=== PATIENT | female | born 1980 | race Caucasian/White ===

== ENCOUNTER 2016-11-29 16:05 | Emergency (ER) | payer OTHER ==
[2016-11-29 16:10] VITALS: BP 142/98; PULSE 110; TEMP 97.6; BMI 25.7
--- NOTE | 2016-11-29 16:42 | PDOC ---
[id number] No Limitations - History of Present Illness Initial Comments: 11/29/16 16:55 Chief complaint: Vomiting and diarrhea Patient is a healthy 35-year-old female states that she has 1 day of vomiting and diarrhea, son at the same yesterday. No fever. GENERAL/CONSTITUTIONAL: No fever, weakness. dizziness HEAD, EYES, EARS, NOSE AND THROAT: No change in vision. No ear pain or discharge. No sore throat. CARDIOVASCULAR: No chest pain RESPIRATORY: No shortness of breath or cough GASTROINTESTINAL: +pain, nausea, vomiting, diarrhea GENITOURINARY: No dysuria MUSCULOSKELETAL: No neck or back pain SKIN: No rash NEUROLOGIC: No headache, vertigo, loss of consciousness, or loss of sensation. GENERAL: The patient is awake, alert, and fully oriented, in no acute distress. HEAD: Normal with no signs of trauma. EYES: Pupils equal, round and reactive to light, sclera anicteric, conjunctiva clear. ENT: pharynx: no erythema, no exudate, uvula midline NECK: supple CHEST: clear, nontender, rr ABD: soft, +bs, minimal suprapubic tenderness, no right lower tenderness EXTREMITIES: Normal range of motion, no edema. NEUROLOGICAL: Normal speech, normal gait. SKIN: Warm, Dry <Kyra Geller - Last Filed: 11/29/16 20:25> <Thang Louise - Last Filed: 12/04/16 09:56> - General Chief Complaint: Nausea/Vomiting Stated Complaint: VOMITING/ABD PAIN Time Seen by Provider: 11/29/16 16:25 Past History - Past Medical History Anemia: No Asthma: No Cancer: No Cardiac Disorders: No CVA: No COPD: No CHF: No Dementia: No Diabetes: No GI Disorders: No Disorders: No HTN: No Hypercholesterolemia: No Kidney Stones: Yes Liver Disease: No Seizures: No Thyroid Disease: No - Surgical History Abdominal Surgery: Yes (aura barrett) Appendectomy: No Cardiac Surgery: No Cholecystectomy: No Lung Surgery: No Neurologic Surgery: No Orthopedic Surgery: No - Immunization History Immunization Up to Date: Yes - Psycho/Social/Smoking Cessation Hx Anxiety: No Suicidal Ideation: No Smoking Status: No Smoking History: Never smoked Have you smoked in the past 12 months: No Number of Cigarettes Smoked Daily: 0 Information on smoking cessation initiated: No Hx Alcohol Use: No Drug/Substance Use Hx: No Substance Use Type: Alcohol Hx Substance Use Treatment: No <Kyra Geller - Last Filed: 11/29/16 20:25> <Thang Louise - Last Filed: 12/04/16 09:56> - Past Medical History Allergies/Adverse Reactions: Allergies Allergy/AdvReac Type Severity Reaction Status Date / Time morphine Allergy Severe Nausea Verified 11/29/16 16:08 Home Medications: Ambulatory Orders NK [No Known Home Medication] 11/29/16 *Physical Exam - Vital Signs Last Vital Signs Temp Pulse Resp BP Pulse Ox 97.6 F 110 H 20 142/98 96 11/29/16 16:08 11/29/16 16:08 11/29/16 16:08 11/29/16 16:08 11/29/16 16:08 <Kyra Geller - Last Filed: 11/29/16 20:25> - Vital Signs Last Vital Signs Temp Pulse Resp BP Pulse Ox 97.6 F 110 H 20 142/98 96 11/29/16 16:08 11/29/16 16:08 11/29/16 16:08 11/29/16 16:08 11/29/16 16:08 <Thang Louise - Last Filed: 12/04/16 09:56> ED Treatment Course - LABORATORY CBC & Chemistry Diagram: 11/29/16 17:00 11/29/16 17:00 <Kyra Geller - Last Filed: 11/29/16 20:25> - LABORATORY CBC & Chemistry Diagram: 11/29/16 17:00 11/29/16 17:00 - ADDITIONAL ORDERS Additional order review: 11/29/16 17:00 RBC 5.20 MCV 81.4 MCHC 33.1 RDW 13.1 MPV 8.0 Neutrophils % 81.0 Lymphocytes % 13.0 D Monocytes % 4.9 D Eosinophils % 0.2 D Basophils % 0.9 - Medications Given in the ED: ED Medications Discontinued Medications Generic Name Dose Route Start Last Admin Trade Name Freq PRN Reason Stop Dose Admin Famotidine/Sodium Chloride 50 mls @ 100 mls/hr 11/29/16 16:49 11/29/16 17:11 Pepcid 20 Mg Premixed Ivpb - IVPB 11/29/16 17:18 100 mls/hr ONCE ONE Administration Sodium Chloride 1,000 mls @ 1,000 mls/hr 11/29/16 16:49 11/29/16 17:06 Normal Saline - IV 11/29/16 17:48 1,000 mls/hr ASDIR STA Administration Ondansetron HCl 4 mg 11/29/16 16:49 11/29/16 17:11 Zofran Injection IVPB 11/29/16 16:50 4 mg ONCE ONE Administration Ondansetron HCl 4 mg 11/29/16 19:19 11/29/16 19:37 Zofran Injection IVPUSH 11/29/16 19:20 4 mg ONCE ONE Administration <Thang Louise - Last Filed: 12/04/16 09:56> Medical Decision Making - Medical Decision Making 11/29/16 16:58 1 day of vomiting diarrhea, no fever, daughter has the same. Patient appears otherwise well. Patient will get labs, hydration, Zofran and Pepcid and be reassessed. Abdominal exam is non-concerning, no imaging indicated 11/29/16 19:22 Patient feels better, complaining of a little nausea, abdominal exam benign, will give 1 more dose of Zofran prior to discharge <Kyra Geller - Last Filed: 11/29/16 20:25> - Medical Decision Making 12/04/16 09:56 The patient was seen and evaluated in conjunction with NIKKO Geller under my direct supervision, ancillary studies were reviewed. I agree with the plan as outlined by NIKKO Geller . <Thang Louise - Last Filed: 12/04/16 09:56> *DC/Admit/Observation/Transfer - Discharge Dispostion Admit: No <Kyra Geller - Last Filed: 11/29/16 20:25> <Thang Louise - Last Filed: 12/04/16 09:56> Diagnosis at time of Disposition: Vomiting and diarrhea - Discharge Dispostion Disposition: HOME - Referrals Referrals: Cinthia Carias [Primary Care Provider] - - Patient Instructions Printed Discharge Instructions: DI for Vomiting -- Adult Additional Instructions: Clear fluids. No vomiting can eat bland foods, no spicy or greasy foods Return to the nearest ER if fever, vomiting or worsening pain Followup with your doctor in one to 2 days
[2016-11-29] MEDS ORDERED: ONDANSETRON 4 MG/2 ML VIAL IVPB ONE (16:49)
[2016-11-29] MEDS ORDERED: FAMOTIDINE 20 MG/50 ML IVPB 50 ML IVPB ONE ×2 (16:49→17:07)
[2016-11-29] MEDS ORDERED: SODIUM CHLORIDE 1,000 ML IV STA (16:49)
[2016-11-29] MEDS ORDERED: ONDANSETRON 4 MG/2 ML VIAL ONE ×2 (17:07→19:24)
[2016-11-29 17:16] LABS: BASOPHIL 0.9 % (0-2.0); EOSINOPHIL 0.2 % (0-4.5); MCHC 33.1 g/dl (32.0-36.0); MEAN CELL VOLUME 81.4 fl (80-96); PLATELET COUNT 421 K/MM3 (134-434); RDW 13.1 % (11.6-15.6); WHITE BLOOD COUNT 11.5 K/mm3 (4.0-10.0)
[2016-11-29 17:17] LABS: URINE APPEARANCE SLCLOUDY; URINE BILIRUBIN NEGATIVE (NEGATIVE); URINE BLOOD NEGATIVE (NEGATIVE); URINE COLOR YELLOW; URINE GLUCOSE (UA) NEGATIVE (NEGATIVE); URINE KETONE NEGATIVE (NEGATIVE); URINE LEUK ESTERASE NEGATIVE (NEGATIVE); URINE NITRITE NEGATIVE (NEGATIVE); URINE UROBILINOGEN NEGATIVE E.U./dl (0.2-1.0)
[2016-11-29 17:18] LABS: URINE PROTEIN 2+ (NEGATIVE)
[2016-11-29 17:39] LABS: URINE MUCUS FEW; URINE RBC 5 /hpf (0-3)
[2016-11-29 18:10] LABS: ALBUMIN 4.3 g/dl (3.4-5.0); ANION GAP 13 (8-16); BILIRUBIN,TOTAL 1.2 mg/dL (0.2-1.0); CALCIUM 9.2 mg/dL (8.5-10.1); CO2 25 mmol/L (21-32); CREATININE 0.8 mg/dL (0.55-1.02); GLUCOSE,RANDOM 100 mg/dL (74-106); SGOT/AST 16 U/L (15-37); SGPT/ALT 30 U/L (12-78)
[2016-11-29 18:12] LABS: ALK PHOS 116 U/L (45-117); TOT PROT 8.4 g/dl (6.4-8.2)
[2016-11-29] MEDS ORDERED: ONDANSETRON 4 MG/2 ML VIAL IVPUSH ONE (19:19)
== END 2016-11-29 19:27 | disposition home or self-care (01) ==
LOC: JER 16:05
PROC: 3E033GC Introduction of Other Therapeutic Substance into Peripheral Vein, Percutaneous Approach (ICD-10-PCS; principal; 2016-11-29)
PROC: 3E0337Z Introduction of Electrolytic and Water Balance Substance into Peripheral Vein, Percutaneous Approach (ICD-10-PCS; 2016-11-29)
DX: R11.10 Vomiting, unspecified (principal); R19.7 Diarrhea, unspecified; Z87.442 Personal history of urinary calculi
CPT/HCPCS: 36415; 80053; 81003; 81015; 84703; 85025; 99284-25

== ENCOUNTER 2019-06-27 12:40 | Inpatient (IN) | payer OTHER ==
[2019-06-27] MEDS ORDERED: SODIUM CHLORIDE 2,313 ML IV ONE (13:18)
--- NOTE | 2019-06-27 13:21 | PDOC ---
Attending Attestation - Resident Resident Name: IgnacioAntonio - ED Attending Attestation I have performed the following: I have examined & evaluated the patient, The case was reviewed & discussed with the resident, I agree w/resident's findings & plan, Exceptions are as noted - HPI HPI: 06/27/19 13:32 38y F hx of pyelo, kidney stones presents with LLQ and L flank pain since yeserday morning, endorses vomting n dubjective fever. currently on her period, she originally though hte sympoms were fromhe peiod. denes any dysuria, foul smelling urine, diarrhea.On arrival p noted to be tachy and febrile exam: general: no acute distress card tachycadic abd: soft, mild LLQ ttp, +LCVA tenderness ddx - likely pyelo vs kidney stone vs obstructed stone fluids for huydratio tyelnol for fver will obtain blood work, ua, hcg, spiral ct - Physicial Exam PE: 06/29/19 07:37 see above - Medical Decision Making pts ct resulted with n osigns of stone but suspicous of pyelo pt has leukocytosis and elevated LA - pt was hydrated signed out to evening team to reasess, recheck LA and dispo accordingly Heart Score/ECG Review - ECG Impressions Comment:: 06/27/19 14:44 Twelve-lead EKG was performed and reviewed by me. There is normal sinus rhythm with a rate of 108 Normal axis nomal r wve progression no st changes suggestive of acute ischemia impression: sinus tachycardia
[2019-06-27] MEDS ORDERED: ONDANSETRON 4 MG/2 ML VIAL IVPUSH ONE ×2 (13:25→16:28)
[2019-06-27] MEDS ORDERED: KETOROLAC TROMETHAMINE 30 MG/1 ML VIAL IVPUSH ONE (13:25)
[2019-06-27] MEDS ORDERED: ONDANSETRON 4 MG/2 ML VIAL ONE ×3 (13:36→18:17)
[2019-06-27] MEDS ORDERED: KETOROLAC TROMETHAMINE 30 MG/1 ML VIAL ONE (13:36)
[2019-06-27 13:40] LABS: BASO % 0.5 % (0-2.0); EOS % 0.1 % (0-4.5); HEMATOCRIT 36.1 % (32.4-45.2); HEMOGLOBIN 12.1 GM/dL (10.7-15.3); MCH 27.2 pg (25.7-33.7); MCHC 33.4 g/dl (32.0-36.0); MEAN CELL VOLUME 81.2 fl (80-96); MEAN PLT VOLUME 7.7 fl (7.5-11.1); MONO % 5.9 % (3.8-10.2); NEUT % 89.5 % (42.8-82.8); PLATELET COUNT 297 K/MM3 (134-434); RBC 4.45 M/mm3 (3.60-5.2); RDW 13.6 % (11.6-15.6); WHITE BLOOD COUNT 15.4 K/mm3 (4.0-10.0)
--- NOTE | 2019-06-27 13:52 | PDOC ---
History of Present Illness - General Chief Complaint: Back Pain Stated Complaint: R/O KIDNEY STONES Time Seen by Provider: 06/27/19 13:09 History Source: Patient, Family - History of Present Illness Initial Comments: 06/27/19 15:05 Ms. Thompson is a 38 y/o woman with hx prior nephrolithiasis, pyelonephritis p/w one day of worsening L flank and lower abdominal pain. She reports that last night she began to experience mild L sided cramping that she attributed to her menstrual period as she had begun her period yesterday as well. Over night, the pain began to worsen significantly, as she reports the beginning of chills, nausea overnight. Today she reports 10/10 L sided Flank and abdominal pain, radiation across her lower back, worse with movement, cramping pain, and constant. She reports 6x episodes of non bloody non bilious vomiting since this AM, alongside ongoing severe pain and chills. She reports that the pain feels similar to her prior episode of pyelonephritis. She denies any fatigue, chest pain, dysuria, polyuria, changes in vision, lightheadedness, vertigo. Past History - Past Medical History Allergies/Adverse Reactions: Allergies Allergy/AdvReac Type Severity Reaction Status Date / Time morphine Allergy Severe Nausea Verified 11/29/16 16:08 Home Medications: Ambulatory Orders NK [No Known Home Medication] 11/29/16 Anemia: No Asthma: No Cancer: No Cardiac Disorders: No CVA: No COPD: No CHF: No Dementia: No Diabetes: No GI Disorders: No Disorders: No HTN: No Hypercholesterolemia: No Kidney Stones: Yes Liver Disease: No Seizures: No Thyroid Disease: No - Surgical History Abdominal Surgery: Yes (tummy tuck) Appendectomy: No Cardiac Surgery: No Cholecystectomy: No Lung Surgery: No Neurologic Surgery: No Orthopedic Surgery: No - Immunization History Immunization Up to Date: Yes - Suicide/Smoking/Psychosocial Hx Smoking Status: No Smoking History: Never smoked Have you smoked in the past 12 months: No Number of Cigarettes Smoked Daily: 0 Information on smoking cessation initiated: No Hx Alcohol Use: No Drug/Substance Use Hx: No Substance Use Type: Alcohol Hx Substance Use Treatment: No Review of Systems - Review of Systems Able to Perform ROS?: Yes Comments:: 06/27/19 14:15 ROS: GENERAL/CONSTITUTIONAL: Fever, chills. No weakness. HEAD, EYES, EARS, NOSE AND THROAT: No change in vision. No ear pain or discharge. No sore throat. CARDIOVASCULAR: No chest pain or shortness of breath RESPIRATORY: No cough, wheezing, or hemoptysis. GASTROINTESTINAL: Nausea, vomiting. No diarrhea or constipation. GENITOURINARY: No dysuria, frequency, or change in urination. MUSCULOSKELETAL: L flank pain. No joint or muscle swelling or pain. No neck pain. SKIN: No rash NEUROLOGIC: No headache, vertigo, loss of consciousness, or change in strength/ sensation. ENDOCRINE: No increased thirst. No abnormal weight change HEMATOLOGIC/LYMPHATIC: No anemia, easy bleeding, or history of blood clots. ALLERGIC/IMMUNOLOGIC: No hives or skin allergy. *Physical Exam - Vital Signs Last Vital Signs Temp Pulse Resp BP Pulse Ox 102.4 F H 119 H 20 123/91 100 06/27/19 13:19 06/27/19 12:49 06/27/19 12:49 06/27/19 12:49 06/27/19 12:49 - Physical Exam Comments: 06/27/19 13:53 PE: GENERAL: Awake, alert, and fully oriented, moderate distress, hunched over on hospital bed HEAD: No signs of trauma, normocephalic, atraumatic EYES: PERRLA, EOMI, sclera anicteric, conjunctiva clear ENT: Auricles normal inspection, hearing grossly normal, nares patent, oropharynx clear without exudates. Moist mucosa NECK: Normal ROM, supple, no lymphadenopathy, JVD, or masses LUNGS: No distress, speaks full sentences, clear to auscultation bilaterally HEART: Regular rate and rhythm, normal S1 and S2, no murmurs, rubs or gallops, peripheral pulses normal and equal bilaterally. ABDOMEN: +CVA tenderness, jumping off exam bed on L CVA. +LLQ pain, +L pelvic pain. Soft, normoactive bowel sounds. No guarding, no rebound. No masses EXTREMITIES : Normal inspection, Normal range of motion, no edema. No clubbing or cyanosis SKIN: Warm, Dry, normal turgor, no rashes or lesions noted ED Treatment Course - LABORATORY CBC & Chemistry Diagram: 06/28/19 06:35 06/28/19 06:35 - Medications Given in the ED: ED Medications Discontinued Medications Generic Name Dose Route Start Last Admin Trade Name Nellie PRN Reason Stop Dose Admin Ketorolac Tromethamine 30 mg 06/27/19 13:25 06/27/19 13:43 Toradol Injection - IVPUSH 06/27/19 13:26 30 mg ONCE ONE Administration Ondansetron HCl 4 mg 06/27/19 13:25 06/27/19 13:43 Zofran Injection IVPUSH 06/27/19 13:26 4 mg ONCE ONE Administration Medical Decision Making - Medical Decision Making 06/27/19 13:47 38 F with hx prior pyelonephritis, prior nephrolithiasis p/w acute onset L flank pain, +CVA tenderness, febrile, chills consistent with pyelonephritis. Ovarian torsion also possible given one sided lower abdominal pain, tachycardia , nausea, vomiting but less likely than pyelonephritis given history, physical exam findings. Plan: Sepsis order set (given +SIRS criteria, likely renal source) CBC CMP Blood cultures UA Urine culture IV NS 1L Toradol 30 mg pain control Motrin 200 mg for fever, pain control Urine Serum CT abdomen/pelvis with contrast Dispo: Pending labs, imaging --- Rectal temp - 102.5 06/27/19 14:12 WBC - 15.4 Ceftriaxone 1g ordered for presumed pyelonephritis coverage Dispo: pending reassessment, abx, nausea/pain control, imaging --- Still endorsing significant pain, 1g ofirmev ordered 06/27/19 15:04 Lactate 2.3 - additional fluid bolus ordered Patient to CT --- CT read pending. Patient still endorsing significant pain, nausea. Reports vomiting in the restroom. Dilaudid, zofran ordered for pain control. 06/27/19 17:04 CT - no signs of kidney stone, no hydronephrosis. Ureter enlargement, stranding , signs consistent with pyelonephritis. Patient still endorsing significant pain, nausea, vomiting after medication, fluids. She reports that during her prior pyelonephritis she was discharged but had to return to the hospital the next day due to uncontrollable pain/nausea/ vomiting. Plan for inpatient admission. Case microblogged. *DC/Admit/Observation/Transfer Diagnosis at time of Disposition: Pyelonephritis - Discharge Dispostion Condition at time of disposition: Stable Decision to Admit order: Yes - Referrals - Patient Instructions - Post Discharge Activity
[2019-06-27 13:55] LABS: INR 1.29 (0.83-1.09); PROTHROMBIN TIME (PATIENT) 15.3 SEC (9.7-13.0)
[2019-06-27 13:57] LABS: ACTIVATED PTT 26.9 SECONDS (25.2-36.5)
[2019-06-27] MEDS ORDERED: ACETAMINOPHEN 1000 MG/100 ML VIAL (NON FORMULARY) IVPB ONE (14:20)
[2019-06-27] MEDS ORDERED: CEFTRIAXONE 1 GM/50 ML BAG ONE (14:23)
[2019-06-27] MEDS ORDERED: ACETAMINOPHEN INJECTION 100 ML IVPB ONE (14:23)
[2019-06-27 14:45] LABS: ALBUMIN 3.6 g/dl (3.4-5.0); ALK PHOS 96 U/L (45-117); ANION GAP 9 MMOL/L (8-16); BILIRUBIN,TOTAL 2.6 mg/dL (0.2-1); BLOOD UREA NITROGEN 12.3 mg/dL (7-18); CHLORIDE 102 mmol/L (98-107); CO2 27 mmol/L (21-32); GLUCOSE,RANDOM 107 mg/dL (74-106); SGOT/AST 20 U/L (15-37); SGPT/ALT 34 U/L (13-61); SODIUM 137 mmol/L (136-145); TOT PROT 7.3 g/dl (6.4-8.2)
[2019-06-27] MEDS ORDERED: SODIUM CHLORIDE 1,000 ML IV STA ×2 (14:49→18:08)
[2019-06-27] MEDS ORDERED: POTASSIUM CHLORIDE TABS 20 MEQ TABLET.ER (FP) PO ONE ×3 (14:50→18:12)
[2019-06-27] MEDS ORDERED: KCL 10 MEQ IVPB 10 MEQ/100 ML INFUS.BAG IVPB SCH (15:00)
[2019-06-27 15:28] LABS: EPI CELLS 3.6 /HPF (0-5/HPF); HYALINE CASTS 5 /lpf (0-8); URINE APPEARANCE CLOUDY; URINE BACTERIA 8178.3 /hpf (NEGATIVE); URINE BILIRUBIN NEGATIVE (NEGATIVE); URINE COLOR YELLOW; URINE GLUCOSE (UA) NEGATIVE (NEGATIVE); URINE KETONE TRACE (NEGATIVE); URINE LEUK ESTERASE 3+ (NEGATIVE); URINE NITRITE POSITIVE (NEGATIVE); URINE PROTEIN 1+ (NEGATIVE); URINE WBC 343 /hpf (0-5)
[2019-06-27] MEDS ORDERED: KCL 10 MEQ IVPB 10 MEQ/100 ML INFUS.BAG IVPB ONE (16:03)
[2019-06-27] MEDS ORDERED: HYDROmorphone HCL CARPU-JECT 2 MG/1 ML DISP.SYRIN IVPUSH ONE (16:28)
--- NOTE | 2019-06-27 16:28 | EKG ---
Test Reason : Blood Pressure : / mmHG Vent. Rate : 108 BPM Atrial Rate : 108 BPM P-R Int : 146 ms QRS Dur : 092 ms QT Int : 346 ms P-R-T Axes : 059 075 053 degrees QTc Int : 463 ms SINUS TACHYCARDIA INCOMPLETE RBBB ABNORMAL ECG Confirmed by MD SHEREE, SHERRI ([id number]) on 06/27/2019 4:28:30 PM Referred By: Confirmed By:SHERRI BENTLEY MD
[2019-06-27] MEDS ORDERED: HYDROmorphone HCl 2 MG/ML VIAL ONE (16:43)
[2019-06-27] MEDS ORDERED: IBUPROFEN 600 MG TABLET (FP) PO ONE ×2 (17:53→17:55)
[2019-06-27] MEDS ORDERED: ONDANSETRON 4 MG/2 ML VIAL IVPUSH PRN (17:57)
[2019-06-27 17:58] LABS: URINE RBC 22.8 /hpf (0-4); YEAST NONE SEEN (NEGATIVE)
--- NOTE | 2019-06-27 18:02 | HP ---
CHIEF COMPLAINT: Back Pain PCP: Cinthia Carias HISTORY OF PRESENT ILLNESS: Ms. Thompson is a 38 y/o woman with hx prior nephrolithiasis, pyelonephritis p/w one day of worsening L flank and lower abdominal pain. She reports that last night she began to experience mild L sided cramping that she attributed to her menstrual period as she had begun her period yesterday as well. Over night, the pain began to worsen significantly, as she reports the beginning of chills, nausea overnight. Today she reports 10/10 L sided Flank and abdominal pain, radiation across her lower back, worse with movement, cramping pain, and constant. She reports 6x episodes of non bloody non bilious vomiting since this AM, alongside ongoing severe pain and chills. She reports that the pain feels similar to her prior episode of pyelonephritis. She denies any fatigue, chest pain, dysuria, polyuria, changes in vision, lightheadedness, vertigo. ER course was notable for: (1) CT ABD/Pelvis (2) 2313ml 0.9% NS Given (3) Ceftriaxone 1Gm (4) Blood Culture, UC/UA Recent Travel: Denies PAST MEDICAL HISTORY: Pyleonephritis PAST SURGICAL HISTORY: Denies Social History: Smoking: Denies Alcohol: Twice a week Drugs: Denies Family History: Dad-DMII HTN Allergies morphine Allergy (Severe, Verified 11/29/16 16:08) Nausea HOME MEDICATIONS: Home Medications Medication Instructions Recorded NK [No Known Home Medication] 11/29/16 REVIEW OF SYSTEMS GENERAL/CONSTITUTIONAL: Fever, chills. No weakness. HEAD, EYES, EARS, NOSE AND THROAT: No change in vision. No ear pain or discharge. No sore throat. CARDIOVASCULAR: No chest pain or shortness of breath RESPIRATORY: No cough, wheezing, or hemoptysis. GASTROINTESTINAL: Nausea, vomiting. No diarrhea or constipation. GENITOURINARY: No dysuria, frequency, or change in urination. MUSCULOSKELETAL: L flank pain. No joint or muscle swelling or pain. No neck pain. SKIN: No rash NEUROLOGIC: No headache, vertigo, loss of consciousness, or change in strength/ sensation. ENDOCRINE: No increased thirst. No abnormal weight change HEMATOLOGIC/LYMPHATIC: No anemia, easy bleeding, or history of blood clots. ALLERGIC/IMMUNOLOGIC: No hives or skin allergy. PHYSICAL EXAMINATION Vital Signs - 24 hr 09/15/19 09/15/19 09/15/19 12:49 13:19 16:17 Temperature 99 F 102.4 F H Pulse Rate 119 H Pulse Rate [ 117 H Left Radial] Respiratory 20 12 Rate Blood Pressure 123/91 Blood Pressure 113/72 [Right Arm] O2 Sat by Pulse 100 100 Oximetry (%) 06/27/19 06/27/19 06/27/19 16:20 17:19 17:37 Temperature 98.9 F 101.4 F H 101.1 F H Pulse Rate Pulse Rate [ 120 H Left Radial] Respiratory 18 Rate Blood Pressure Blood Pressure 139/74 [Right Arm] O2 Sat by Pulse 100 Oximetry (%) GENERAL: Awake, alert, and fully oriented, moderate distress, hunched over on hospital bed HEAD: No signs of trauma, normocephalic, atraumatic EYES: PERRLA, EOMI, sclera anicteric, conjunctiva clear ENT: Auricles normal inspection, hearing grossly normal, nares patent, oropharynx clear without exudates. Moist mucosa NECK: Normal ROM, supple, no lymphadenopathy, JVD, or masses LUNGS: No distress, speaks full sentences, clear to auscultation bilaterally HEART: Regular rate and rhythm, normal S1 and S2, no murmurs, rubs or gallops, peripheral pulses normal and equal bilaterally. ABDOMEN: +CVA tenderness, jumping off exam bed on L CVA. +LLQ pain, +L pelvic pain. Soft, normoactive bowel sounds. No guarding, no rebound. No masses EXTREMITIES : Normal inspection, Normal range of motion, no edema. No clubbing or cyanosis SKIN: Warm, Dry, normal turgor, no rashes or lesions noted Laboratory Results - last 24 hr 06/27/19 06/27/19 06/27/19 13:19 13:19 13:30 WBC 15.4 H RBC 4.45 Hgb 12.1 Hct 36.1 MCV 81.2 MCH 27.2 MCHC 33.4 RDW 13.6 Plt Count 297 D MPV 7.7 Absolute Neuts (auto) 13.7 H Neutrophils % 89.5 H Lymphocytes % 4.0 L D Monocytes % 5.9 Eosinophils % 0.1 Basophils % 0.5 Nucleated RBC % 0 PT with INR INR PTT (Actin FS) Sodium 137 Potassium 3.0 L Chloride 102 Carbon Dioxide 27 Anion Gap 9 BUN 12.3 Creatinine 1.0 Est GFR (CKD-EPI)AfAm 81.61 Est GFR (CKD-EPI)NonAf 70.41 Random Glucose 107 H Lactic Acid 2.3 H* Calcium 9.0 Total Bilirubin 2.6 H AST 20 ALT 34 Alkaline Phosphatase 96 Troponin I < 0.02 Total Protein 7.3 Albumin 3.6 Serum , Qual Urine Color Urine Appearance Urine pH Ur Specific [place] Urine Protein Urine Glucose (UA) Urine Ketones Urine Blood Urine Nitrite Urine Bilirubin Urine Urobilinogen Ur Leukocyte Esterase Urine WBC (Auto) Urine Casts (Auto) U Epithel Cells (Auto) Urine Bacteria (Auto) 06/27/19 06/27/19 06/27/19 13:30 14:11 15:00 WBC RBC Hgb Hct MCV MCH MCHC RDW Plt Count MPV Absolute Neuts (auto) Neutrophils % Lymphocytes % Monocytes % Eosinophils % Basophils % Nucleated RBC % PT with INR 15.30 H INR 1.29 H PTT (Actin FS) 26.9 Sodium Potassium Chloride Carbon Dioxide Anion Gap BUN Creatinine Est GFR (CKD-EPI)AfAm Est GFR (CKD-EPI)NonAf Random Glucose Lactic Acid Calcium Total Bilirubin AST ALT Alkaline Phosphatase Troponin I Total Protein Albumin Serum , Qual Negative Urine Color Yellow Urine Appearance Cloudy Urine pH 7.0 Ur Specific [place] 1.023 Urine Protein 1+ H Urine Glucose (UA) Negative Urine Ketones Trace H Urine Blood 3+ H Urine Nitrite Positive H Urine Bilirubin Negative Urine Urobilinogen 1.0 Ur Leukocyte Esterase 3+ H Urine WBC (Auto) 343 Urine Casts (Auto) 5 U Epithel Cells (Auto) 3.6 Urine Bacteria (Auto) 8178.3 ASSESSMENT/PLAN: Ms. Thompson is a 38 y/o woman with hx prior nephrolithiasis, pyelonephritis p/w one day of worsening L flank and lower abdominal pain. Pyelonephritis -Complaints of back pain radiating to abdomen -CT ABD/Pelvis Impression-Inflammatory changes involving the left kidney and left renal collecting system suggesting pyelonephritis. -ID Consulted-Dr. Escobar --Zosyn Q8H IV -Dilaudid 0.5mg IVPB Q4H PRN for Pain -Offirmev 1gm IVPB U3C-Ijm switch to PO once Nausea resolves -Zofran 4mg Once for Nausea. No PRN due to Prolonged QTc -Consider Urology consult if condition worsens -CBC, CMP, MG in AM Sepsis -WBCs 15.4 -Lactate 4.2 (trending) -Tmax 102.4 -Bolus 1L 0.9% NS -Recheck Lactate @2130 -qsofa=0 FEN -100ml/hr 0.9% NS - K+ 3.0 40mEq KCL IV once Recheck @2130 -Regular Diet as tolerated DVT Prophylaxis -Lovenox 40mg Daily Dispo -Inpatient -Full Code Visit type - Emergency Visit Emergency Visit: Yes ED Registration Date: 06/27/19 Care time: The patient presented to the Emergency Department on the above date and was hospitalized for further evaluation of their emergent condition. - New Patient This patient is new to me today: Yes Date on this admission: 06/27/19 - Critical Care Critical Care patient: No
[2019-06-27] MEDS ORDERED: PIPERACILLIN/TAZOB 3.375 GM 3.375 GM/50 ML BAG IVPB ONE (18:40)
[2019-06-27] MEDS: PIPERACILLIN/TAZOB 3.375 GM 3.375 GM in DEXTROSE 5%-WATER - 50 ML IVPB SCH (18:46)
[2019-06-27 18:53] LABS: MAGNESIUM 1.9 mg/dL (1.8-2.4)
[2019-06-27] MEDS ORDERED: POTASSIUM CHLORIDE 40 MEQ in SODIUM CHLORIDE 1,000 ML IVPB SCH (19:08)
[2019-06-27] MEDS ORDERED: SODIUM CHLORIDE 1,000 ML IV SCH (19:08)
[2019-06-27] MEDS: DEXTROSE 5%-0.45% SALINE 1,000 ML IV SCH (20:07)
[2019-06-27] MEDS ORDERED: ACETAMINOPHEN 1000 MG/100 ML VIAL (NON FORMULARY) IVPB PRN (22:30)
[2019-06-28 00:03] VITALS: BMI 27.9
[2019-06-28] MEDS ORDERED: PIPERACILLIN/TAZOBACTAM 3.375 GM VIAL IVPB ONE ×3 (01:24→17:08)
[2019-06-28] MEDS ORDERED: DEXTROSE 5%-WATER - 50 ML IVPB ONE ×3 (01:25→17:08)
[2019-06-28] MEDS: HYDROmorphone HCl 2 MG/ML VIAL IVPB PRN ×3 (01:46→18:39)
[2019-06-28] MEDS: PIPERACILLIN/TAZOB 3.375 GM 3.375 GM in DEXTROSE 5%-WATER - 50 ML IVPB SCH ×3 (02:01→17:10)
[2019-06-28] MEDS: DEXTROSE 5%-0.45% SALINE 1,000 ML IV SCH ×3 (06:35→18:15)
[2019-06-28 07:49] LABS: BASO % 0.3 % (0-2.0); EOS % 0.6 % (0-4.5); HEMOGLOBIN 9.4 GM/dL (10.7-15.3); LYMPH % 9.4 % (8-40); MCH 27.2 pg (25.7-33.7); MCHC 32.6 g/dl (32.0-36.0); MEAN CELL VOLUME 83.4 fl (80-96); MEAN PLT VOLUME 8.8 fl (7.5-11.1); MONO % 7.5 % (3.8-10.2); NEUT % 82.2 % (42.8-82.8); PLATELET COUNT 202 K/MM3 (134-434); RBC 3.47 M/mm3 (3.60-5.2); RDW 13.9 % (11.6-15.6); WHITE BLOOD COUNT 11.3 K/mm3 (4.0-10.0)
--- NOTE | 2019-06-28 08:09 | PN ---
Progress Note, Physician Chief Complaint: left flank pain and suprapubic pain, better today History of Present Illness: HISTORY OF PRESENT ILLNESS: Ms. Thompson is a 38 y/o woman with hx prior nephrolithiasis, pyelonephritis w/ one day of worsening L flank and lower abdominal pain. She reports that last night she began to experience mild L sided cramping that she attributed to her menstrual period as she had begun her period yesterday. Over night, the pain began to worsen significantly, as she reports the beginning of chills, nausea overnight. Today she reports 10/10 L sided Flank and abdominal pain, radiation across her lower back, worse with movement, cramping pain, and constant. She reports 6x episodes of non bloody non bilious vomiting since this AM, alongside ongoing severe pain and chills. She reports that the pain feels similar to her prior episode of pyelonephritis. She denies any fatigue, chest pain, dysuria, polyuria, changes in vision, lightheadedness, vertigo. - Current Medication List Current Medications: Active Medications Acetaminophen (Ofirmev Injection -) 1,000 mg IVPB Q6H PRN PRN Reason: PAIN LEVEL 4 - 6 Enoxaparin Sodium (Lovenox -) 40 mg SQ DAILY JENNY Hydromorphone HCl (Dilaudid Vial -) 0.5 mg IVPB Q4H PRN PRN Reason: PAIN LEVEL 7 - 10 Last Admin: 06/28/19 01:46 Dose: 0.5 mg Dextrose/Sodium Chloride (D5-1/2ns -) 1,000 mls @ 100 mls/hr IV ASDIR JENNY Last Admin: 06/28/19 06:35 Dose: 100 mls/hr Piperacillin Sod/Tazobactam (Sod 3.375 gm/ Dextrose) 50 mls @ 100 mls/hr IVPB Q8H-IV JENNY; Protocol Last Admin: 06/28/19 02:01 Dose: 100 mls/hr - Objective Vital Signs: Vital Signs Temperature 98.6 F 06/28/19 06:36 Pulse Rate 70 06/28/19 06:36 Respiratory Rate 20 06/28/19 06:36 Blood Pressure 96/60 06/28/19 06:36 O2 Sat by Pulse Oximetry (%) 98 06/27/19 23:05 Constitutional: Yes: Well Nourished, Calm, Mild Distress Eyes: Yes: WNL, Conjunctiva Clear HENT: Yes: WNL, Atraumatic, Normocephalic Neck: Yes: WNL, Supple, Trachea Midline Cardiovascular: Yes: WNL, Regular Rate and Rhythm Respiratory: Yes: WNL, Regular, CTA Bilaterally Gastrointestinal: Yes: Normal Bowel Sounds, Soft, Tenderness (to supraqpubic area) ...Rectal Exam: Yes: Deferred Genitourinary: Yes: CVA Tenderness - Left (left flank), Other (suprasupic, no hematuria) Breast(s): Yes: WNL Musculoskeletal: Yes: WNL Extremities: Yes: WNL Edema: No Peripheral Pulses WNL: Yes Integumentary: Yes: WNL Neurological: Yes: WNL, Alert, Oriented Labs: CBC, BMP 06/28/19 06:35 INR, PTT INR 1.29 (0.83-1.09) H 06/27/19 13:30 - ....Imaging Cat Scan: Report Reviewed (CT ABD/Pelvis Impression-Inflammatory changes involving the left kidney and left renal collecting system suggesting pyelonephritis.) Problem List - Problems (1) Prophylactic measure Assessment/Plan: FEN IVF reg diet monitor electrolytes DVT ambulatory lovenox Dispo maintain as in patient full code discharge planning Code(s): Z29.9 - ENCOUNTER FOR PROPHYLACTIC MEASURES, UNSPECIFIED (2) Nausea & vomiting Assessment/Plan: IVF zofran prn Code(s): R11.2 - NAUSEA WITH VOMITING, UNSPECIFIED (3) Pyelonephritis Assessment/Plan: CT ABD/Pelvis Impression-Inflammatory changes involving the left kidney and left renal collecting system suggesting pyelonephritis appreciate ID consultation c/w zosyn Code(s): N12 - TUBULO-INTERSTITIAL NEPHRITIS, NOT SPCF ACUTE OR CHRONIC (4) Abdominal pain Assessment/Plan: pt has MSO4 allergy-severe GI upset c/w dilaudid for severe pain, IV tylenol for moderate Code(s): R10.9 - UNSPECIFIED ABDOMINAL PAIN Visit type - Emergency Visit Emergency Visit: Yes ED Registration Date: 06/27/19 Care time: The patient presented to the Emergency Department on the above date and was hospitalized for further evaluation of their emergent condition. - New Patient This patient is new to me today: Yes Date on this admission: 06/28/19 - Critical Care Critical Care patient: No - Discharge Referral Referred to [facility] No
[2019-06-28 08:18] LABS: ALBUMIN 2.3 g/dl (3.4-5.0); BLOOD UREA NITROGEN 8.5 mg/dL (7-18); CALCIUM 7.1 mg/dL (8.5-10.1); CREATININE 0.8 mg/dL (0.55-1.3); MAGNESIUM 1.5 mg/dL (1.8-2.4); POTASSIUM 4.1 mmol/L (3.5-5.1); TOT PROT 5.1 g/dl (6.4-8.2)
[2019-06-28] MEDS: ENOXAPARIN NA (PORCINE) 40 MG/0.4 ML DISP.SYRIN SQ SCH (10:04)
--- NOTE | 2019-06-28 11:23 | CON.ID ---
Consult Consult Specialty:: infectious diseases Referred by:: Wilfrid Reason for Consultation:: sepsis,uti,pyelo,fever - History of Present Illness Chief Complaint: left flank pain,uti History of Present Illness: 38 y/o woman with hx prior nephrolithiasis, pyelonephritis admitted because of worsening L flank and lower abdominal pain. She reports that she began to experience mild L sided cramping that she attributed to her menstrual period as she had begun her period yesterday as well. Over night, the pain began to worsen significantly, as she reports the beginning of chills, nausea overnight. Today she reports 10/10 L sided Flank and abdominal pain, radiation across her lower back, worse with movement, cramping pain, and constant. She reports 6x episodes of non bloody non bilious vomiting since this AM, alongside ongoing severe pain and chills. She reports that the pain feels similar to her prior episode of pyelonephritis. She denies any fatigue, chest pain, dysuria, polyuria , changes in vision, lightheadedness, vertigo. patient mentions that she has been told that she is calcium retainer and has formed kidney stones - History Source History Provided By: Patient Limitations to Obtaining History: No Limitations - Past Medical History ...LMP: 09/30/15 ...: No - Alcohol/Substance Use Hx Alcohol Use: No History of Substance Use: reports: None - Smoking History Smoking history: Never smoked Have you smoked in the past 12 months: No Aproximately how many cigarettes per day: 0 Home Medications - Allergies Allergies/Adverse Reactions: Allergies Allergy/AdvReac Type Severity Reaction Status Date / Time morphine Allergy Severe Nausea Verified 11/29/16 16:08 - Home Medications Home Medications: Ambulatory Orders NK [No Known Home Medication] 11/29/16 Family Disease History - Family Disease History Family Disease History: Other: Father (htn) Review of Systems - Review of Systems Constitutional: reports: Chills, Fever Eyes: reports: No Symptoms HENT: reports: No Symptoms Neck: reports: No Symptoms Cardiovascular: reports: No Symptoms Respiratory: reports: No Symptoms Gastrointestinal: reports: No Symptoms Genitourinary: reports: Flank Pain Musculoskeletal: reports: No Symptoms Integumentary: reports: No Symptoms Neurological: reports: No Symptoms Endocrine: reports: No Symptoms Hematology/Lymphatic: reports: No Symptoms Psychiatric: reports: No Symptoms Physical Exam Vital Signs: Vital Signs Temperature 99.6 F 06/28/19 11:00 Pulse Rate 96 H 06/28/19 11:00 Respiratory Rate 20 06/28/19 11:00 Blood Pressure 107/67 06/28/19 11:00 O2 Sat by Pulse Oximetry (%) 98 06/27/19 23:05 Constitutional: Yes: Well Nourished, Calm, Mild Distress Eyes: Yes: Conjunctiva Clear HENT: Yes: Atraumatic, Normocephalic Neck: Yes: Supple, Trachea Midline Cardiovascular: Yes: Regular Rate and Rhythm Respiratory: Yes: Regular, CTA Bilaterally Gastrointestinal: Yes: Normal Bowel Sounds, Soft Renal/: Yes: CVA Tenderness - Left Musculoskeletal: Yes: WNL Extremities: Yes: WNL Neurological: Yes: Alert, Oriented Psychiatric: Yes: Alert, Oriented Labs: CBC, BMP 06/28/19 06:35 06/28/19 06:35 Imaging - Results Cat Scan: Report Reviewed, Image Reviewed Assessment/Plan 38 y/o woman with hx prior nephrolithiasis, pyelonephritis p/w one day of worsening L flank and lower abdominal pain. pyelonephritis sepsis leukocytosis fever plan continue zosyn hydration monitor wbc rest as per the team
[2019-06-28] MEDS ORDERED: ACETAMINOPHEN 1000 MG/100 ML VIAL (NON FORMULARY) IVPB ONE (14:19)
[2019-06-29] MEDS: HYDROmorphone HCl 2 MG/ML VIAL IVPB PRN (01:13)
[2019-06-29] MEDS ORDERED: DEXTROSE 5%-WATER - 50 ML IVPB ONE ×3 (01:51→17:21)
[2019-06-29] MEDS ORDERED: PIPERACILLIN/TAZOBACTAM 3.375 GM VIAL IVPB ONE ×3 (01:51→17:21)
[2019-06-29] MEDS: PIPERACILLIN/TAZOB 3.375 GM 3.375 GM in DEXTROSE 5%-WATER - 50 ML IVPB SCH ×3 (02:02→17:27)
[2019-06-29] MEDS: DEXTROSE 5%-0.45% SALINE 1,000 ML IV SCH ×2 (05:05→21:09)
--- NOTE | 2019-06-29 09:37 | PN ---
Progress Note, Physician Chief Complaint: headache today, constipation History of Present Illness: Patient is a 38 y/o woman with hx prior nephrolithiasis, pyelonephritis w/ one day of worsening L flank and lower abdominal pain and found to have acute pyelonephritis by CT imaging. She has been started on Zosyn and is being followed by ID. UC shows Ecoli, sensitivities noted. She reports feeling better, still having left flank pain/tenderness. Having a headache today as well as feels constipated. Will start on bowel regimen and treat headache with Fiorecet. Will discontinue dilaudid and replace with toradol for pain management. Dilaudid likely making the constipation worse. Awaiting today's labs. - Current Medication List Current Medications: Active Medications Acetaminophen (Ofirmev Injection -) 1,000 mg IVPB Q6H PRN PRN Reason: PAIN LEVEL 4 - 6 Enoxaparin Sodium (Lovenox -) 40 mg SQ DAILY [facility] Last Admin: 06/28/19 10:04 Dose: 40 mg Hydromorphone HCl (Dilaudid Vial -) 0.5 mg IVPB Q4H PRN PRN Reason: PAIN LEVEL 7 - 10 Last Admin: 06/29/19 01:13 Dose: 0.5 mg Dextrose/Sodium Chloride (D5-1/2ns -) 1,000 mls @ 100 mls/hr IV ASDIR JENNY Last Admin: 06/29/19 05:05 Dose: 100 mls/hr Piperacillin Sod/Tazobactam (Sod 3.375 gm/ Dextrose) 50 mls @ 100 mls/hr IVPB Q8H-IV JENNY; Protocol Last Admin: 06/29/19 02:02 Dose: 100 mls/hr - Objective Vital Signs: Vital Signs Temperature 100 F H 06/29/19 07:49 Pulse Rate 93 H 06/29/19 07:49 Respiratory Rate 20 06/29/19 07:49 Blood Pressure 132/82 06/29/19 07:49 O2 Sat by Pulse Oximetry (%) 98 06/28/19 21:00 Constitutional: Yes: Calm HENT: Yes: WNL Neck: Yes: WNL Cardiovascular: Yes: Regular Rate and Rhythm Respiratory: Yes: Regular Gastrointestinal: Yes: Soft ...Rectal Exam: Yes: Deferred Musculoskeletal: Yes: WNL Extremities: Yes: WNL Edema: No Integumentary: Yes: WNL Wound/Incision: Yes: Clean/Dry Neurological: Yes: Alert, Oriented ...Motor Strength: WNL Psychiatric: Yes: Alert, Oriented Labs: CBC, BMP 06/28/19 06:35 06/28/19 06:35 INR, PTT INR 1.29 (0.83-1.09) H 06/27/19 13:30 Problem List - Problems (1) Pyelonephritis Assessment/Plan: CT ABD/Pelvis Impression-Inflammatory changes involving the left kidney and left renal collecting system suggesting pyelonephritis appreciate ID consultation On zosyn urine cultures with ecoli WBC trended down to normal on IVF Code(s): N12 - TUBULO-INTERSTITIAL NEPHRITIS, NOT SPCF ACUTE OR CHRONIC (2) Abdominal pain Assessment/Plan: resolved. no abdominal pain or nausea. Code(s): R10.9 - UNSPECIFIED ABDOMINAL PAIN (3) Diarrhea Assessment/Plan: resolved, now constipated Code(s): R19.7 - DIARRHEA, UNSPECIFIED (4) Nausea & vomiting Assessment/Plan: none reported. Code(s): R11.2 - NAUSEA WITH VOMITING, UNSPECIFIED (5) Vomiting and diarrhea Code(s): R11.10 - VOMITING, UNSPECIFIED; R19.7 - DIARRHEA, UNSPECIFIED (6) Constipation Assessment/Plan: bowel regimen: miralax, colace started Code(s): K59.00 - CONSTIPATION, UNSPECIFIED (7) Prophylactic measure Assessment/Plan: FEN IVF reg diet monitor electrolytes DVT ambulatory lovenox Dispo maintain as in patient full code Code(s): Z29.9 - ENCOUNTER FOR PROPHYLACTIC MEASURES, UNSPECIFIED Visit type - Emergency Visit Emergency Visit: Yes ED Registration Date: 06/27/19 Care time: The patient presented to the Emergency Department on the above date and was hospitalized for further evaluation of their emergent condition. - New Patient This patient is new to me today: Yes Date on this admission: 06/29/19 - Critical Care Critical Care patient: No - Discharge Referral Referred to [facility] No
[2019-06-29] MEDS ORDERED: ACETAMINOPHEN/CAFFEINE/BUTALBITAL 1 TAB PO ONE (09:43)
[2019-06-29] MEDS ORDERED: ACETAMINOPHEN/CAFFEINE/BUTALBITAL 1 TAB PO PRN (09:45)
[2019-06-29 11:25] LABS: BASO % 0.6 % (0-2.0); HEMATOCRIT 31.5 % (32.4-45.2); HEMOGLOBIN 10.4 GM/dL (10.7-15.3); LYMPH % 14.6 % (8-40); MCHC 32.9 g/dl (32.0-36.0); MEAN CELL VOLUME 82.2 fl (80-96); MEAN PLT VOLUME 8.7 fl (7.5-11.1); MONO % 10.7 % (3.8-10.2); NEUT % 73.1 % (42.8-82.8); PLATELET COUNT 238 K/MM3 (134-434); RBC 3.83 M/mm3 (3.60-5.2); RDW 13.3 % (11.6-15.6); WHITE BLOOD COUNT 6.9 K/mm3 (4.0-10.0)
[2019-06-29] MEDS: POLYETHYLENE GLYCOL 3350 119 GM BTL PO SCH (11:26)
[2019-06-29] MEDS: ENOXAPARIN NA (PORCINE) 40 MG/0.4 ML DISP.SYRIN SQ SCH (11:26)
[2019-06-29 11:35] LABS: ALBUMIN 2.6 g/dl (3.4-5.0); BILIRUBIN,TOTAL 0.8 mg/dL (0.2-1); BLOOD UREA NITROGEN 3.8 mg/dL (7-18); CALCIUM 7.9 mg/dL (8.5-10.1); CREATININE 0.8 mg/dL (0.55-1.3); MAGNESIUM 1.8 mg/dL (1.8-2.4); POTASSIUM 3.2 mmol/L (3.5-5.1); TOT PROT 6.2 g/dl (6.4-8.2)
--- NOTE | 2019-06-29 11:39 | PN ---
Progress Note, Physician History of Present Illness: still with pain and still spiking fever urine cx positive - Current Medication List Current Medications: Active Medications Acetaminophen (Ofirmev Injection -) 1,000 mg IVPB Q6H PRN PRN Reason: PAIN LEVEL 4 - 6 Acetaminophen/Butalbital/Caffeine (Fioricet -) 1 tablet PO Q6H PRN PRN Reason: HEADACHE Docusate Sodium (Colace -) 100 mg PO TID JENNY Enoxaparin Sodium (Lovenox -) 40 mg SQ DAILY JENNY Last Admin: 06/29/19 11:26 Dose: 40 mg Dextrose/Sodium Chloride (D5-1/2ns -) 1,000 mls @ 100 mls/hr IV ASDIR JENNY Last Admin: 06/29/19 05:05 Dose: 100 mls/hr Piperacillin Sod/Tazobactam (Sod 3.375 gm/ Dextrose) 50 mls @ 100 mls/hr IVPB Q8H-IV JENNY; Protocol Last Admin: 06/29/19 11:24 Dose: 100 mls/hr Ketorolac Tromethamine (Toradol) 10 mg PO Q6HPO PRN PRN Reason: PAIN LEVEL 7 - 10 Stop: 07/04/19 11:59 Polyethylene Glycol (Miralax (For Daily Use) -) 17 gm PO DAILY [facility] Last Admin: 06/29/19 11:26 Dose: 17 gm - Objective Vital Signs: Vital Signs Temperature 100 F H 06/29/19 07:49 Pulse Rate 93 H 06/29/19 07:49 Respiratory Rate 20 06/29/19 07:49 Blood Pressure 132/82 06/29/19 07:49 O2 Sat by Pulse Oximetry (%) 98 06/28/19 21:00 Constitutional: Yes: Calm, Mild Distress Cardiovascular: Yes: S1, S2 Respiratory: Yes: Regular, CTA Bilaterally Gastrointestinal: Yes: Normal Bowel Sounds, Soft Genitourinary: Yes: CVA Tenderness - Left Musculoskeletal: Yes: WNL Extremities: Yes: WNL Neurological: Yes: Alert, Oriented Psychiatric: Yes: Alert, Oriented Labs: CBC, BMP 06/29/19 10:11 INR, PTT INR 1.29 (0.83-1.09) H 06/27/19 13:30 Assessment/Plan 38 y/o woman with hx prior nephrolithiasis, pyelonephritis p/w one day of worsening L flank and lower abdominal pain. pyelonephritis sepsis leukocytosis fever plan continue zosyn hydration monitor wbc,awaiting for the result rest as per the team
[2019-06-29] MEDS ORDERED: POTASSIUM CHLORIDE TABS 20 MEQ TABLET.ER (FP) PO ONE (11:56)
[2019-06-29] MEDS: DOCUSATE SODIUM 100 MG CAPSULE (FP) PO SCH ×2 (13:45→21:09)
[2019-06-29] MEDS: KETOROLAC TROMETHAMINE 10 MG TABLET PO PRN ×2 (17:27→22:48)
[2019-06-29 21:36] VITALS: TEMP 98.4
[2019-06-30] MEDS ORDERED: PIPERACILLIN/TAZOBACTAM 3.375 GM VIAL IVPB ONE ×2 (00:39→10:44)
[2019-06-30] MEDS ORDERED: DEXTROSE 5%-WATER - 50 ML IVPB ONE ×2 (00:39→10:45)
[2019-06-30 01:08] LABS: URINE APPEARANCE CLEAR; URINE BILIRUBIN NEGATIVE (NEGATIVE); URINE COLOR YELLOW; URINE GLUCOSE (UA) NEGATIVE (NEGATIVE); URINE KETONE NEGATIVE (NEGATIVE); URINE LEUK ESTERASE NEGATIVE (NEGATIVE); URINE NITRITE NEGATIVE (NEGATIVE); URINE PROTEIN NEGATIVE (NEGATIVE); URINE UROBILINOGEN 0.2 mg/dL (0.2-1.0)
[2019-06-30] MEDS: PIPERACILLIN/TAZOB 3.375 GM 3.375 GM in DEXTROSE 5%-WATER - 50 ML IVPB SCH ×2 (01:26→10:49)
[2019-06-30] MEDS: DOCUSATE SODIUM 100 MG CAPSULE (FP) PO SCH (06:35)
[2019-06-30 08:16] LABS: BASO % 0.6 % (0-2.0); EOS % 3.4 % (0-4.5); HEMATOCRIT 34.5 % (32.4-45.2); HEMOGLOBIN 11.5 GM/dL (10.7-15.3); LYMPH % 22.3 % (8-40); MCH 27.2 pg (25.7-33.7); MCHC 33.4 g/dl (32.0-36.0); MEAN CELL VOLUME 81.5 fl (80-96); MEAN PLT VOLUME 8.3 fl (7.5-11.1); MONO % 11.9 % (3.8-10.2); NEUT % 61.8 % (42.8-82.8); PLATELET COUNT 309 K/MM3 (134-434); RBC 4.23 M/mm3 (3.60-5.2); RDW 13.4 % (11.6-15.6); WHITE BLOOD COUNT 5.9 K/mm3 (4.0-10.0)
[2019-06-30 08:41] LABS: BILIRUBIN,TOTAL 0.7 mg/dL (0.2-1); BLOOD UREA NITROGEN 3.7 mg/dL (7-18); CALCIUM 8.8 mg/dL (8.5-10.1); CREATININE 0.7 mg/dL (0.55-1.3); POTASSIUM 3.7 mmol/L (3.5-5.1); TOT PROT 7.2 g/dl (6.4-8.2)
[2019-06-30] MEDS: ENOXAPARIN NA (PORCINE) 40 MG/0.4 ML DISP.SYRIN SQ SCH (10:51)
--- NOTE | 2019-06-30 11:00 | PN ---
Progress Note, Physician History of Present Illness: feels much better pain much better - Current Medication List Current Medications: Active Medications Acetaminophen (Ofirmev Injection -) 1,000 mg IVPB Q6H PRN PRN Reason: PAIN LEVEL 4 - 6 Last Admin: 06/29/19 21:09 Dose: 1,000 mg Acetaminophen/Butalbital/Caffeine (Fioricet -) 1 tablet PO Q6H PRN PRN Reason: HEADACHE Docusate Sodium (Colace -) 100 mg PO TID [facility] Last Admin: 06/30/19 06:35 Dose: Not Given Enoxaparin Sodium (Lovenox -) 40 mg SQ DAILY [facility] Last Admin: 06/29/19 11:26 Dose: 40 mg Dextrose/Sodium Chloride (D5-1/2ns -) 1,000 mls @ 100 mls/hr IV ASDIR [facility] Last Admin: 06/29/19 21:09 Dose: 100 mls/hr Piperacillin Sod/Tazobactam (Sod 3.375 gm/ Dextrose) 50 mls @ 100 mls/hr IVPB Q8H-IV JENNY; Protocol Last Admin: 06/30/19 01:26 Dose: 100 mls/hr Ketorolac Tromethamine (Toradol) 10 mg PO Q6HPO PRN PRN Reason: PAIN LEVEL 7 - 10 Stop: 07/04/19 11:59 Last Admin: 06/29/19 22:48 Dose: 10 mg Polyethylene Glycol (Miralax (For Daily Use) -) 17 gm PO DAILY [facility] Last Admin: 06/29/19 11:26 Dose: 17 gm - Objective Vital Signs: Vital Signs Temperature 98.4 F 06/30/19 06:52 Pulse Rate 79 06/30/19 06:52 Respiratory Rate 20 06/30/19 06:52 Blood Pressure 137/78 06/30/19 06:52 O2 Sat by Pulse Oximetry (%) 100 06/29/19 22:00 Constitutional: Yes: No Distress, Calm Cardiovascular: Yes: S1, S2 Respiratory: Yes: Regular, CTA Bilaterally Gastrointestinal: Yes: Normal Bowel Sounds, Soft Musculoskeletal: Yes: WNL Extremities: Yes: WNL Neurological: Yes: Alert, Oriented Psychiatric: Yes: Alert, Oriented Labs: CBC, BMP 06/30/19 07:15 06/30/19 07:15 INR, PTT INR 1.29 (0.83-1.09) H 06/27/19 13:30 Assessment/Plan 38 y/o woman with hx prior nephrolithiasis, pyelonephritis p/w one day of worsening L flank and lower abdominal pain. pyelonephritis sepsis leukocytosis fever plan continue zosyn hydration rest as per the team
[2019-06-30] MEDS: POLYETHYLENE GLYCOL 3350 119 GM BTL PO SCH (11:10)
[2019-06-30 11:31] VITALS: BP 147/91; PULSE 78
--- NOTE | 2019-06-30 12:39 | DS ---
Physical Exam: SUBJECTIVE: Patient seen and examined at the bedside. feels well, in no acute distress. denies pain. wants to go home. OBJECTIVE: Vital Signs Period Temp Pulse Resp BP Sys/Downing Pulse Ox Last 24 Hr 98.3 F-98.8 F 62-90 18-20 128-147/78-99 99-100 PHYSICAL EXAM GENERAL: The patient is awake, alert, and fully oriented, in no acute distress. HEAD: Normal with no signs of trauma. EYES: PERRL, extraocular movements intact, sclera anicteric, conjunctiva clear. ENT: Ears normal, nares patent, oropharynx clear without exudates, moist mucous membranes. NECK: Trachea midline, full range of motion, supple. LUNGS: Breath sounds equal, clear to auscultation bilaterally HEART: Regular rate and rhythm ABDOMEN: Soft, nontender, nondistended, normoactive bowel sounds, no guarding, no rebound, no hepatosplenomegaly, no masses. EXTREMITIES: no edema. NEUROLOGICAL: Normal speech, gait not observed. PSYCH: Normal mood, normal affect. SKIN: Warm, dry, normal turgor, no rashes or lesions noted. LABS Laboratory Results - last 24 hr 06/30/19 06/30/19 06/30/19 00:43 07:15 07:15 WBC 5.9 RBC 4.23 Hgb 11.5 Hct 34.5 MCV 81.5 MCH 27.2 MCHC 33.4 RDW 13.4 Plt Count 309 D MPV 8.3 Absolute Neuts (auto) 3.6 Neutrophils % 61.8 Lymphocytes % 22.3 D Monocytes % 11.9 H Eosinophils % 3.4 D Basophils % 0.6 Nucleated RBC % 0 Sodium 140 Potassium 3.7 Chloride 106 Carbon Dioxide 27 Anion Gap 7 L BUN 3.7 L Creatinine 0.7 Est GFR (CKD-EPI)AfAm 125.61 Est GFR (CKD-EPI)NonAf 108.38 Random Glucose 86 Calcium 8.8 Magnesium 2.0 Total Bilirubin 0.7 AST 19 ALT 38 Alkaline Phosphatase 99 Total Protein 7.2 Albumin 3.0 L Urine Color Yellow Urine Appearance Clear Urine pH 8.0 Ur Specific [place] 1.010 Urine Protein Negative Urine Glucose (UA) Negative Urine Ketones Negative Urine Blood Negative Urine Nitrite Negative Urine Bilirubin Negative Urine Urobilinogen 0.2 Ur Leukocyte Esterase Negative HOSPITAL COURSE: Date of Admission:06/27/19 Date of Discharge: 06/30/19 Minutes to complete discharge: 60 Discharge Summary Reason For Visit: PYELONEPHRITIS/SEPSIS/NAUSEA & VOMITING Current Active Problems Abdominal pain (Acute) Constipation (Acute) Prophylactic measure (Acute) Pyelonephritis (Acute) Condition: Stable - Instructions Diet, Activity, Other Instructions: Mrs Thompson: You were admitted for an infection of your left kidney. You have received antiobiotics during your hospital stay and we will be sending you home. Continue Levaquin for 7 more days ONCE PER DAY. Start on 07/01/19. Please follow up with your primary care doctor. Thank you for allowing us to care for you Referrals: ON STAFF,NOT [Non Staff, Medical] - Disposition: HOME - Home Medications Comprehensive Discharge Medication List: Ambulatory Orders Levofloxacin [Levaquin] 750 mg PO DAILY #7 tablet 06/30/19 Problem List - Problems (1) Pyelonephritis Assessment/Plan: CT ABD/Pelvis Impression-Inflammatory changes involving the left kidney and left renal collecting system suggesting pyelonephritis appreciate ID consultation. Patient completed a full course of IV Zosyn and is to be converted to Levaquin 750mg PO for 7 more days. patient wbc normalized, afebrile. Code(s): N12 - TUBULO-INTERSTITIAL NEPHRITIS, NOT SPCF ACUTE OR CHRONIC (2) Abdominal pain Assessment/Plan: resolved. no abdominal pain or nausea. Code(s): R10.9 - UNSPECIFIED ABDOMINAL PAIN (3) Diarrhea Assessment/Plan: resolved Code(s): R19.7 - DIARRHEA, UNSPECIFIED (4) Nausea & vomiting Assessment/Plan: none reported. Code(s): R11.2 - NAUSEA WITH VOMITING, UNSPECIFIED (5) Vomiting and diarrhea Code(s): R11.10 - VOMITING, UNSPECIFIED; R19.7 - DIARRHEA, UNSPECIFIED (6) Constipation Assessment/Plan: resolved. Code(s): K59.00 - CONSTIPATION, UNSPECIFIED (7) Prophylactic measure Code(s): Z29.9 - ENCOUNTER FOR PROPHYLACTIC MEASURES, UNSPECIFIED This patient is new to me today: No Emergency Visit: Yes ED Registration Date: 06/27/19 Care time: The patient presented to the Emergency Department on the above date and was hospitalized for further evaluation of their emergent condition. Critical Care patient: No - Discharge Referral Referred to [facility] No
== END 2019-06-30 15:44 | disposition home or self-care (01) | DRG 872 ==
LOC: JER 12:40 → JERBED 17:02 → J8W 23:12
PROVIDERS: ADMIT Internal Medicine; ATTEND Nurse Practitioner Family
DX: A41.9 Sepsis, unspecified organism (principal); N10 Acute pyelonephritis; K59.00 Constipation, unspecified; R10.9 Unspecified abdominal pain; R19.7 Diarrhea, unspecified; R11.2 Nausea with vomiting, unspecified; D72.829 Elevated white blood cell count, unspecified; R50.9 Fever, unspecified
CPT/HCPCS: 36415; 74177-TC; 80053; 81003; 83605; 83735; 84132; 84484; 84703; 85025; 85610; 85730; 87040; 87086; 87186; 93005; 93010; 99285-25; J0131; J7030

== ENCOUNTER 2021-01-16 22:37 | Emergency (ER) | payer OTHER ==
[2021-01-16 22:42] VITALS: BMI 29.1
[2021-01-16] MEDS ORDERED: SODIUM CHLORIDE 1,000 ML IV STA (23:42)
[2021-01-16] MEDS ORDERED: ONDANSETRON 4 MG/2 ML VIAL IVPUSH ONE (23:42)
[2021-01-16] MEDS ORDERED: ACETAMINOPHEN 1000 MG/100 ML VIAL (NON FORMULARY) IVPB ONE (23:46)
[2021-01-16] MEDS ORDERED: ONDANSETRON 4 MG/2 ML VIAL ONE (23:56)
[2021-01-16] MEDS ORDERED: ACETAMINOPHEN INJECTION 100 ML IVPB ONE (23:56)
[2021-01-17 00:04] LABS: BASO % 1.3 % (0-2.0); EOS % 0.9 % (0-4.5); HEMATOCRIT 36.7 % (32.4-45.2); HEMOGLOBIN 12.1 GM/dL (10.7-15.3); LYMPH % 26.1 % (8-40); MCH 26.8 pg (25.7-33.7); MEAN CELL VOLUME 81.3 fl (80-96); MEAN PLT VOLUME 8.2 fl (7.5-11.1); MONO % 6.3 % (3.8-10.2); NEUT % 65.4 % (42.8-82.8); PLATELET COUNT 348 K/MM3 (134-434); RBC 4.51 M/mm3 (3.60-5.2); RDW 13.5 % (11.6-15.6); WHITE BLOOD COUNT 10.9 K/mm3 (4.0-10.0)
[2021-01-17 00:08] LABS: HCG,QUALITATIVE URINE Negative
[2021-01-17 00:18] LABS: EPI CELLS 15 /uL (0-25.1); HYALINE CASTS 1 /uL (0-3.1); URINE APPEARANCE CLEAR; URINE BACTERIA 1546 /uL (0-1359); URINE BILIRUBIN NEGATIVE (NEGATIVE); URINE COLOR YELLOW; URINE GLUCOSE (UA) NEGATIVE (NEGATIVE); URINE KETONE NEGATIVE (NEGATIVE); URINE LEUK ESTERASE 3+ (NEGATIVE); URINE NITRITE NEGATIVE (NEGATIVE); URINE PROTEIN NEGATIVE (NEGATIVE); URINE RBC 12 /uL (0-23.9); URINE UROBILINOGEN 0.2 mg/dL (0.2-1.0); URINE WBC 272 /uL (0-25.8)
[2021-01-17 00:25] LABS: POTASSIUM 4.2 mmol/L (3.5-5.1)
[2021-01-17 00:27] LABS: ALBUMIN 3.5 g/dl (3.4-5.0); BLOOD UREA NITROGEN 15.6 mg/dL (7-18); CALCIUM 8.9 mg/dL (8.5-10.1)
[2021-01-17 00:31] LABS: CREATININE 0.9 mg/dL (0.55-1.3)
[2021-01-17 00:32] LABS: BILIRUBIN,TOTAL 0.6 mg/dL (0.2-1); TOT PROT 7.5 g/dl (6.4-8.2)
[2021-01-17] MEDS ORDERED: CEFTRIAXONE 1,000 MG in DEXTROSE 5%-WATER - 50 ML IVPB ONE (00:40)
[2021-01-17] MEDS ORDERED: KETOROLAC TROMETHAMINE 15 MG/ML VIAL ONE (00:44)
[2021-01-17] MEDS ORDERED: KETOROLAC TROMETHAMINE 15 MG/ML VIAL IVPUSH ONE (00:44)
[2021-01-17] MEDS ORDERED: CEFTRIAXONE 1 GM/50 ML BAG ONE (00:59)
[2021-01-17 02:06] VITALS: BP 144/102; PULSE 78; TEMP 98.8
== END 2021-01-17 02:28 | disposition home or self-care (01) ==
LOC: JER 22:37
PROC: 3E0333Z Introduction of Anti-inflammatory into Peripheral Vein, Percutaneous Approach (ICD-10-PCS; principal; 2021-01-16)
PROC: 3E03329 Introduction of Other Anti-infective into Peripheral Vein, Percutaneous Approach (ICD-10-PCS; 2021-01-16)
PROC: 3E0333Z Introduction of Anti-inflammatory into Peripheral Vein, Percutaneous Approach (ICD-10-PCS; 2021-01-16)
DX: N10 Acute pyelonephritis (principal)
CPT/HCPCS: 36415; 74176-TC; 80053; 81003; 84703; 85025; 87086; 87186; 99284-25; J0131

== ENCOUNTER 2022-08-14 04:37 | Day surgery (SDC) | payer OTHER ==
[2022-08-13 14:04] VITALS: BMI 26.2
[2022-08-14] MEDS ORDERED: ACETAMINOPHEN 325 MG TABLET (FP) PO PRN (13:27)
[2022-08-14] MEDS ORDERED: IBUPROFEN 400 MG TABLET (FP) PO PRN (13:27)
[2022-08-14] MEDS ORDERED: oxyCODONE HCL 5 MG TABLET PO PRN ×2 (13:27→15:11)
[2022-08-14] MEDS ORDERED: PROMETHAZINE HCL 25 MG/1 ML VIAL IVPUSH PRN (15:11)
[2022-08-14] MEDS ORDERED: ONDANSETRON 4 MG/2 ML VIAL IVPUSH PRN (15:11)
[2022-08-14] MEDS ORDERED: LACTATED RINGERS SOLUTION 1,000 ML IV SCH (15:15)
[2022-08-14] MEDS ORDERED: LIDOCAINE HCL/PF 2% SDV 5ML VIAL ONE (15:17)
[2022-08-14] MEDS ORDERED: ONDANSETRON 4 MG/2 ML VIAL ONE (15:17)
[2022-08-14] MEDS ORDERED: DEXAMETHASONE SOD PHOSPHATE 4 MG/1 ML VIAL ONE (15:17)
[2022-08-14] MEDS ORDERED: PROPOFOL 20 ML ONE (15:18)
[2022-08-14] MEDS ORDERED: MIDAZOLAM HCL 2 MG/2 ML SINGLE DOSE VIAL ONE (15:18)
[2022-08-14] MEDS ORDERED: hydrALAZINE HCL 20 MG/ML VIAL ONE (16:44)
[2022-08-14] MEDS ORDERED: hydrALAZINE HCL 20 MG/ML VIAL IVPUSH ONE ×2 (16:47→16:50)
[2022-08-14 18:06] VITALS: TEMP 97.5
[2022-08-14 18:12] VITALS: BP 154/101; PULSE 91; RESP 18
[2022-08-14] MEDS ORDERED: ACETAMINOPHEN 325 MG TABLET (FP) ONE (18:19)
[2022-08-14] MEDS ORDERED: oxyCODONE HCL 5 MG TABLET ONE (18:54)
== END 2022-08-14 20:00 | disposition home or self-care (01) ==
LOC: JASU-SURG 04:37
PROVIDERS: ATTEND Obstetrics & Gynecology
PROC: 0UDB7ZX Extraction of Endometrium, Via Natural or Artificial Opening, Diagnostic (ICD-10-PCS; principal; 2022-08-14 14:00)
PROC: 0UJD8ZZ Inspection of Uterus and Cervix, Via Natural or Artificial Opening Endoscopic (ICD-10-PCS; 2022-08-14 14:00)
DX: N92.0 Excessive and frequent menstruation with regular cycle (principal)
CPT/HCPCS: 81025; 94760

== ENCOUNTER 2023-05-11 13:27 | Emergency (ER) | payer OTHER ==
[2023-05-11] MEDS ORDERED: ONDANSETRON 4 MG/2 ML VIAL IVPUSH ONE (13:43)
[2023-05-11] MEDS ORDERED: SODIUM CHLORIDE 1,000 ML IV STA (13:43)
[2023-05-11] MEDS ORDERED: ACETAMINOPHEN 1000 MG/100 ML BAG IVPB ONE (13:45)
[2023-05-11 13:49] VITALS: TEMP 98; BMI 28.3
[2023-05-11] MEDS ORDERED: ACETAMINOPHEN INJECTION 100 ML IVPB ONE (13:54)
[2023-05-11] MEDS ORDERED: ONDANSETRON 4 MG/2 ML VIAL ONE (13:55)
[2023-05-11 14:28] LABS: EOS % 0.8 % (0-4.5); HEMOGLOBIN 13.1 GM/dL (10.7-15.3); LYMPH % 22.7 % (8-40); MCH 26.8 pg (25.7-33.7); MCHC 32.7 g/dl (32.0-36.0); MEAN CELL VOLUME 81.9 fl (80-96); MEAN PLT VOLUME 8.2 fl (7.5-11.1); MONO % 7.2 % (3.8-10.2); NEUT % 68.3 % (42.8-82.8); PLATELET COUNT 426 10^3/uL (134-434); RBC 4.88 M/mm3 (3.60-5.2); RDW 13.1 % (11.6-15.6); WHITE BLOOD COUNT 7.1 K/mm3 (4.0-10.0)
[2023-05-11 14:30] LABS: EPI CELLS >36 /uL (0-25.1); HYALINE CASTS 0 /uL (0-3.1); URINE APPEARANCE CLEAR; URINE BACTERIA 538 /uL (0-1359); URINE BILIRUBIN NEGATIVE (NEGATIVE); URINE COLOR YELLOW; URINE GLUCOSE (UA) NEGATIVE (NEGATIVE); URINE KETONE NEGATIVE (NEGATIVE); URINE LEUK ESTERASE TRACE (NEGATIVE); URINE NITRITE NEGATIVE (NEGATIVE); URINE PROTEIN TRACE (NEGATIVE); URINE UROBILINOGEN 0.2 mg/dL (0.2-1.0); URINE WBC 9 /uL (0-25.8)
[2023-05-11 14:37] LABS: POTASSIUM 4.2 mmol/L (3.5-5.1)
[2023-05-11 14:41] LABS: BLOOD UREA NITROGEN 13.8 mg/dL (7-18); CALCIUM 8.1 mg/dL (8.5-10.1); HCG,QUALITATIVE URINE Negative
[2023-05-11 14:42] LABS: ALBUMIN 3.6 g/dl (3.4-5.0)
[2023-05-11 14:44] LABS: CREATININE 0.8 mg/dL (0.55-1.3)
[2023-05-11 14:46] LABS: BILIRUBIN,TOTAL 0.9 mg/dL (0.2-1); TOT PROT 7.7 g/dl (6.4-8.2)
[2023-05-11] MEDS ORDERED: METOCLOPRAMIDE HCL INJECTION 10 MG/2 ML VIAL IVPUSH ONE (14:46)
[2023-05-11] MEDS ORDERED: METOCLOPRAMIDE HCL INJECTION 10 MG/2 ML VIAL ONE (14:47)
[2023-05-11 15:41] VITALS: BP 136/90; PULSE 74; RESP 20
== END 2023-05-11 16:01 | disposition home or self-care (01) ==
LOC: JER 13:27
PROC: 3E033GC Introduction of Other Therapeutic Substance into Peripheral Vein, Percutaneous Approach (ICD-10-PCS; principal; 2023-05-11)
DX: K52.9 Noninfective gastroenteritis and colitis, unspecified (principal)
CPT/HCPCS: 36415; 80053; 81003; 82150; 83690; 84703; 85025; 87086; 99284-25

== ENCOUNTER 2023-08-16 09:47 | Inpatient (IN) | payer OTHER ==
[2023-08-16] MEDS ORDERED: ACETAMINOPHEN 1000 MG/100 ML BAG IVPB ONE (11:22)
[2023-08-16] MEDS ORDERED: SODIUM CHLORIDE 0.9% 500 ML INFUS.BAG IV ONE ×2 (11:22→18:44)
[2023-08-16] MEDS ORDERED: ACETAMINOPHEN INJECTION 100 ML IVPB ONE (12:16)
[2023-08-16 12:32] LABS: BASO % 0.9 % (0-2.0); EOS % 2.9 % (0-4.5); HEMATOCRIT 40.1 % (32.4-45.2); HEMOGLOBIN 13.4 GM/dL (10.7-15.3); LYMPH % 22.7 % (8-40); MCH 27.1 pg (25.7-33.7); MCHC 33.4 g/dl (32.0-36.0); MEAN CELL VOLUME 81.1 fl (80-96); MEAN PLT VOLUME 8.1 fl (7.5-11.1); MONO % 6.7 % (3.8-10.2); NEUT % 66.8 % (42.8-82.8); PLATELET COUNT 318 10^3/uL (134-434); RBC 4.95 M/mm3 (3.60-5.2); RDW 13.1 % (11.6-15.6)
[2023-08-16 12:40] LABS: EPI CELLS >36 /uL (0-25.1); HYALINE CASTS 0 /uL (0-3.1); PH,URINE 6.5 (5.0-8.0); URINE APPEARANCE CLEAR; URINE BACTERIA 1684 /uL (0-1359); URINE BILIRUBIN NEGATIVE (NEGATIVE); URINE COLOR YELLOW; URINE GLUCOSE (UA) NEGATIVE (NEGATIVE); URINE KETONE NEGATIVE (NEGATIVE); URINE LEUK ESTERASE 1+ (NEGATIVE); URINE NITRITE NEGATIVE (NEGATIVE); URINE PROTEIN NEGATIVE (NEGATIVE); URINE RBC 29.6 /uL (0-23.9); URINE UROBILINOGEN 0.2 mg/dL (0.2-1.0); URINE WBC 8 /uL (0-25.8)
[2023-08-16 12:44] LABS: POTASSIUM 5.4 mmol/L (3.5-5.1)
[2023-08-16 12:48] LABS: ALBUMIN 3.3 g/dl (3.4-5.0); BLOOD UREA NITROGEN 13.4 mg/dL (7-18); CALCIUM 8.8 mg/dL (8.5-10.1)
[2023-08-16 12:51] LABS: CREATININE 0.8 mg/dL (0.55-1.3)
[2023-08-16 12:53] LABS: BILIRUBIN,TOTAL 1.4 mg/dL (0.2-1); TOT PROT 7.6 g/dl (6.4-8.2)
[2023-08-16] MEDS ORDERED: KETOROLAC TROMETHAMINE 15 MG/ML VIAL IVPUSH ONE ×2 (13:43→17:18)
[2023-08-16] MEDS ORDERED: KETOROLAC TROMETHAMINE 15 MG/ML VIAL ONE ×3 (13:48→22:24)
[2023-08-16 14:23] LABS: POTASSIUM 4.3 mmol/L (3.5-5.1)
[2023-08-16 14:24] LABS: CALCIUM 8.7 mg/dL (8.5-10.1)
[2023-08-16 14:25] LABS: BLOOD UREA NITROGEN 11.8 mg/dL (7-18)
[2023-08-16 14:28] LABS: CREATININE 0.7 mg/dL (0.55-1.3)
[2023-08-16] MEDS ORDERED: HYDROmorphone HCl 2 MG/ML VIAL IVPUSH ONE ×3 (18:24→22:20)
[2023-08-16] MEDS ORDERED: HYDROmorphone HCl 2 MG/ML VIAL ONE ×3 (18:30→22:24)
[2023-08-16] MEDS ORDERED: ONDANSETRON 4 MG/2 ML VIAL IVPUSH ONE (20:03)
[2023-08-16] MEDS ORDERED: ONDANSETRON 4 MG/2 ML VIAL ONE (20:08)
[2023-08-16] MEDS ORDERED: KETOROLAC TROMETHAMINE 30 MG/1 ML VIAL IVPUSH ONE (22:19)
[2023-08-16] MEDS ORDERED: ACETAMINOPHEN 325 MG TABLET (FP) PO PRN (22:54)
[2023-08-16] MEDS ORDERED: traMADol HCL 50 MG TABLET PO PRN (22:59)
[2023-08-16] MEDS: SODIUM CHLORIDE 1,000 ML IV SCH (23:10)
[2023-08-17] MEDS ORDERED: KETOROLAC TROMETHAMINE 15 MG/ML VIAL IVPUSH PRN (00:09)
[2023-08-17] MEDS ORDERED: ACETAMINOPHEN 325 MG TABLET (FP) PO PRN (00:10)
[2023-08-17] MEDS ORDERED: PROCHLORPERAZINE INJECTION 10 MG/2 ML VIAL IVPB PRN (01:31)
[2023-08-17] MEDS ORDERED: SENNOSIDES 8.6MG TABLET (FP) PO PRN (01:33)
[2023-08-17] MEDS ORDERED: DOCUSATE SODIUM 100 MG CAPSULE (FP) PO PRN (01:34)
[2023-08-17] MEDS ORDERED: KETOROLAC TROMETHAMINE 15 MG/ML VIAL ONE (04:44)
[2023-08-17 06:42] LABS: HEMATOCRIT 39.9 % (32.4-45.2); MCH 26.8 pg (25.7-33.7); MCHC 32.6 g/dl (32.0-36.0); MEAN CELL VOLUME 82.1 fl (80-96); MEAN PLT VOLUME 8.1 fl (7.5-11.1); PLATELET COUNT 320 10^3/uL (134-434); RBC 4.86 M/mm3 (3.60-5.2); RDW 12.9 % (11.6-15.6); WHITE BLOOD COUNT 9.2 K/mm3 (4.0-10.0)
[2023-08-17 06:57] LABS: POTASSIUM 3.6 mmol/L (3.5-5.1)
[2023-08-17 07:03] LABS: CALCIUM 8.2 mg/dL (8.5-10.1)
[2023-08-17 07:04] LABS: ALBUMIN 3.3 g/dl (3.4-5.0); BLOOD UREA NITROGEN 8.6 mg/dL (7-18); MAGNESIUM 1.9 mg/dL (1.8-2.4)
[2023-08-17 07:07] LABS: CREATININE 0.6 mg/dL (0.55-1.3); PHOSPHOROUS 2.8 mg/dL (2.5-4.9)
[2023-08-17 07:08] LABS: TOT PROT 7.1 g/dl (6.4-8.2)
[2023-08-17 08:42] LABS: OPIATES, URI NEGATIVE (NEGATIVE); URINE AMPHETAMINES NEGATIVE (NEGATIVE); URINE BARBITURATES NEGATIVE (NEGATIVE)
[2023-08-17 08:43] LABS: METHADONE, UR NEGATIVE (NEGATIVE); PHENCYCLIDINE,URINE NEGATIVE (NEGATIVE); URINE BENZODIAZEPINES NEGATIVE (NEGATIVE)
[2023-08-17 08:45] LABS: COCAINE, UR NEGATIVE (NEGATIVE)
[2023-08-17] MEDS: ENOXAPARIN NA (PORCINE) 40 MG/0.4 ML DISP.SYRIN SQ SCH (10:36)
[2023-08-17] MEDS ORDERED: KETOROLAC TROMETHAMINE 30 MG/1 ML VIAL IVPUSH PRN (11:10)
[2023-08-17] MEDS ORDERED: KETOROLAC TROMETHAMINE 30 MG/1 ML VIAL IVPUSH ONE (11:10)
[2023-08-17] MEDS ORDERED: KETOROLAC TROMETHAMINE 30 MG/1 ML VIAL ONE (11:39)
[2023-08-17] MEDS: SODIUM CHLORIDE 1,000 ML IV SCH (11:51)
[2023-08-17] MEDS ORDERED: amLODIPine BESYLATE 5 MG TABLET (FP) ONE (12:27)
[2023-08-17] MEDS ORDERED: amLODIPine BESYLATE 5 MG TABLET (FP) PO ONE (12:30)
[2023-08-17] MEDS ORDERED: ONDANSETRON 4 MG/2 ML VIAL IVPUSH ONE (12:37)
[2023-08-17] MEDS ORDERED: FAMOTIDINE 20 MG/50 ML IVPB 20 MG/50 ML MG IVPB ONE (12:41)
[2023-08-17] MEDS ORDERED: ONDANSETRON 4 MG/2 ML VIAL ONE (12:41)
[2023-08-17] MEDS: FAMOTIDINE 20 MG/50 ML IVPB 20 MG/50 ML MG IVPB SCH ×2 (12:51→21:09)
[2023-08-17 14:44] VITALS: RESP 18
[2023-08-17] MEDS ORDERED: ACETAMINOPHEN 1000 MG/100 ML BAG IVPB ONE (15:38)
[2023-08-17] MEDS ORDERED: ACETAMINOPHEN 1000 MG/100 ML BAG IVPB PRN (15:38)
[2023-08-17 15:40] VITALS: BMI 27.9
[2023-08-17] MEDS: traMADol HCL 50 MG TABLET PO PRN (21:09)
[2023-08-18] MEDS: ONDANSETRON 4 MG/2 ML VIAL IVPUSH PRN ×2 (03:25→11:59)
[2023-08-18] MEDS: FAMOTIDINE 20 MG/50 ML IVPB 20 MG/50 ML MG IVPB SCH ×2 (09:15→21:13)
[2023-08-18] MEDS: ENOXAPARIN NA (PORCINE) 40 MG/0.4 ML DISP.SYRIN SQ SCH (09:15)
[2023-08-18] MEDS: amLODIPine BESYLATE 5 MG TABLET (FP) PO SCH (09:16)
[2023-08-18 10:06] LABS: HEMATOCRIT 38.3 % (32.4-45.2); HEMOGLOBIN 12.7 GM/dL (10.7-15.3); MCH 27.3 pg (25.7-33.7); MCHC 33.1 g/dl (32.0-36.0); MEAN CELL VOLUME 82.6 fl (80-96); MEAN PLT VOLUME 8.1 fl (7.5-11.1); PLATELET COUNT 306 10^3/uL (134-434); RBC 4.64 M/mm3 (3.60-5.2); WHITE BLOOD COUNT 6.8 K/mm3 (4.0-10.0)
[2023-08-18 10:20] LABS: POTASSIUM 3.7 mmol/L (3.5-5.1)
[2023-08-18 10:29] LABS: CALCIUM 8.6 mg/dL (8.5-10.1)
[2023-08-18 10:30] LABS: ALBUMIN 3.4 g/dl (3.4-5.0); BLOOD UREA NITROGEN 8.2 mg/dL (7-18)
[2023-08-18 10:31] LABS: CREATININE 0.8 mg/dL (0.55-1.3)
[2023-08-18 10:32] LABS: BILIRUBIN,TOTAL 2.6 mg/dL (0.2-1); TOT PROT 7.4 g/dl (6.4-8.2)
[2023-08-18 14:02] LABS: BILIRUBIN,DIRECT 0.4 mg/dL (0.0-0.2)
[2023-08-18] MEDS ORDERED: ALPRAZolam 0.25 MG TABLET PO PRN ×3 (14:25→14:43)
[2023-08-18] MEDS: DEXTROSE 5%-NORMAL SALINE 1,000 ML IV SCH (15:56)
[2023-08-18] MEDS: traMADol HCL 50 MG TABLET PO PRN (21:12)
[2023-08-19] MEDS: DEXTROSE 5%-NORMAL SALINE 1,000 ML IV SCH (06:56)
[2023-08-19] MEDS ORDERED: CEFTRIAXONE 1 GM in DEXTROSE 5%-WATER - 50 ML IVPB SCH (10:00)
[2023-08-19] MEDS: traMADol HCL 50 MG TABLET PO PRN (10:28)
[2023-08-19] MEDS: FAMOTIDINE 20 MG/50 ML IVPB 20 MG/50 ML MG IVPB SCH (10:55)
[2023-08-19] MEDS: amLODIPine BESYLATE 5 MG TABLET (FP) PO SCH (10:55)
[2023-08-19] MEDS: ENOXAPARIN NA (PORCINE) 40 MG/0.4 ML DISP.SYRIN SQ SCH (10:55)
[2023-08-19 11:03] VITALS: BP 145/97; PULSE 73; TEMP 97.6
== END 2023-08-19 15:37 | disposition home or self-care (01) | DRG 761 ==
LOC: JER 09:47 → OBSVTOIN 21:42 → UNDOADMOB 21:42 → JERBED 21:42 → INTOOBSV 21:42 → JERBED 08-17 14:55 → J6S 08-17 14:55 → OBSVTOIN 08-18 12:50 → J6S 08-18 12:50 → JERBED 08-18 12:50
PROVIDERS: ADMIT Internal Medicine; ATTEND Family Medicine
DX: D25.9 Leiomyoma of uterus, unspecified (principal); R10.32 Left lower quadrant pain; E80.4 Gilbert syndrome; R11.2 Nausea with vomiting, unspecified
CPT/HCPCS: 36415; 72196-TC; 74177-TC; 74181-TC; 76830-TC; 76856-TC; 80048; 80053; 80307; 81003; 82248; 83690; 83735; 84100; 84703; 85025; 85027; 87086; 87186; 99285-25; Q9967

== ENCOUNTER 2024-03-30 11:56 | Emergency (ER) | payer BC ==
[2024-03-30 12:28] VITALS: TEMP 98.4; BMI 29.2
[2024-03-30 12:55] LABS: BASO % 0.7 % (0-2.0); EOS % 3.1 % (0-4.5); HEMATOCRIT 40.8 % (32.4-45.2); HEMOGLOBIN 13.4 GM/dL (10.7-15.3); LYMPH % 29.7 % (8-40); MCH 26.8 pg (25.7-33.7); MCHC 32.9 g/dl (32.0-36.0); MEAN CELL VOLUME 81.2 fl (80-96); MONO % 6.6 % (3.8-10.2); NEUT % 59.9 % (42.8-82.8); PLATELET COUNT 370 10^3/uL (134-434); RBC 5.02 M/mm3 (3.60-5.2); RDW 13.9 % (11.6-15.6); WHITE BLOOD COUNT 7.7 K/mm3 (4.0-10.0)
[2024-03-30] MEDS ORDERED: ONDANSETRON 4 MG/2 ML VIAL ONE (12:57)
[2024-03-30] MEDS: ONDANSETRON 4 MG/2 ML VIAL IVPUSH ONE (13:09)
[2024-03-30] MEDS: SODIUM CHLORIDE 0.9% 500 ML INFUS.BAG IV ONE (13:09)
[2024-03-30 13:16] LABS: BLOOD UREA NITROGEN 11.5 mg/dL (7-18); CALCIUM 9.2 mg/dL (8.5-10.1)
[2024-03-30 13:18] LABS: ALBUMIN 3.7 g/dl (3.4-5.0)
[2024-03-30 13:20] LABS: CREATININE 0.8 mg/dL (0.55-1.3)
[2024-03-30 13:21] LABS: BILIRUBIN,TOTAL 0.8 mg/dL (0.2-1); TOT PROT 7.9 g/dl (6.4-8.2)
[2024-03-30 15:41] VITALS: BP 120/70; PULSE 72; RESP 14
== END 2024-03-30 14:22 | disposition home or self-care (01) ==
LOC: JER 11:56
PROC: 3E033GC Introduction of Other Therapeutic Substance into Peripheral Vein, Percutaneous Approach (ICD-10-PCS; principal; 2024-03-30)
DX: R55 Syncope and collapse (principal); R42 Dizziness and giddiness; R11.0 Nausea
CPT/HCPCS: 36415; 80053; 82962; 85025; 93005; 93010; 99284-25